=== PATIENT | female | born 1950 | race Caucasian/White ===

== ENCOUNTER 2020-11-07 08:13 | Outpatient (CLI) | payer OTHER | END 2020-11-07 08:27 | disposition home or self-care (01) | LOC: RX STUDY 08:13 | PROVIDERS: ATTEND Internal Medicine Gastroenterology | DX: K22.8 Other specified diseases of esophagus (principal); R13.19 Other dysphagia; M34.1 CR(E)ST syndrome ==

== ENCOUNTER 2022-04-05 08:01 | Outpatient (CLI) | payer OTHER | END 2022-04-05 08:06 | disposition home or self-care (01) | LOC: RX STUDY 08:01 | PROVIDERS: ATTEND Internal Medicine Gastroenterology | DX: R13.10 Dysphagia, unspecified (principal) ==